=== PATIENT | male | born 1965 | race Caucasian/White ===

== ENCOUNTER 2020-11-30 06:11 | Day surgery (SDC) | payer MEDICAID ==
[~2020-11-30] VITALS: Ht 167.6 cm; Wt 75.0 kg
[2020-11-30] MEDS ORDERED: BENZOCAINE 20% 50 MCG/SPRAY 57 GM TP ONE (06:12)
[2020-11-30] MEDS ORDERED: LIDOCAINE 4% 50 ML SOLUTION TP ONE (06:12)
[2020-11-30] MEDS ORDERED: ALBUTEROL SULFATE 2.5 MG/0.5 ML NEB SOLUTION NEB ONE (06:12)
[2020-11-30] MEDS ORDERED: LIDOCAINE 2% 30 ML JELLY TP ONE (06:12)
[2020-11-30 07:03] LABS: COVID AG,FIA SOURCE NASOPHARYNGEAL
[2020-11-30] MEDS ORDERED: FentaNYL CITRATE PF 100 MCG/2 ML VIAL ONE (07:47)
[2020-11-30] MEDS ORDERED: MIDAZOLAM HCL 2 MG/2 ML VIAL ONE (07:47)
[2020-11-30] MEDS ORDERED: SODIUM CHLORIDE 0.9% 1,000 ML IV ONE (08:00)
[2020-11-30] MEDS ORDERED: MethylPREDNISolone SOD SUCC 125 MG/2 ML VIAL IVP ONE (08:45)
[2020-11-30] MEDS ORDERED: MethylPREDNISolone SOD SUCC 125 MG/2 ML VIAL ONE (09:18)
[2020-11-30] MEDS ORDERED: OXYGEN THERAPY IH SCH (20:00)
== END 2020-11-30 10:20 | disposition home or self-care (01) ==
LOC: SURGERY 06:11
PROVIDERS: ATTEND Internal Medicine Critical Care Medicine
DX: J38.4 Edema of larynx (principal); B37.0 Candidal stomatitis; I10 Essential (primary) hypertension; Z79.899 Other long term (current) drug therapy
CPT/HCPCS: 31623; 31624; 71045; 87015; 87070; 87101; 87205; 87206; 87220; 87426; 88108; 88184; 88185; 88312; C9803; J2250; J2930; J3010; J7030; J7613; Z7610

== ENCOUNTER 2023-09-21 06:52 | Day surgery (SDC) | payer OTHER ==
[~2023-09-21] VITALS: Ht 167.6 cm; Wt 81.8 kg
[2023-09-21] MEDS ORDERED: SODIUM CHLORIDE 0.9% 1,000 ML ONE (08:05)
[2023-09-21] MEDS ORDERED: MIDAZOLAM HCL 2 MG/2 ML VIAL ONE (08:27)
[2023-09-21] MEDS ORDERED: FentaNYL CITRATE PF 100 MCG/2 ML VIAL ONE (08:27)
[2023-09-21] MEDS: SODIUM CHLORIDE 0.9% 1,000 ML IV ONE (08:52)
[2023-09-21 09:48] VITALS: PULSE 78; RESP 19; O2SAT 100
[2023-09-21] MEDS ORDERED: MethylPREDNISolone SOD SUCC 125 MG/2 ML VIAL ONE ×2 (10:54→10:58)
[2023-09-21] MEDS: MethylPREDNISolone SOD SUCC 125 MG/2 ML VIAL IVP ONE (10:56)
[2023-09-21] MEDS ORDERED: BENZOCAINE 20% 50 MCG/SPRAY 57 GM ONE (12:00)
[2023-09-21] MEDS ORDERED: LIDOCAINE 4% 50 ML SOLUTION ONE (12:00)
[2023-09-21] MEDS ORDERED: LIDOCAINE 2% 11 ML JELLY ONE (12:00)
[2023-09-21] MEDS ORDERED: ALBUTEROL SULFATE 2.5 MG/0.5 ML NEB SOLUTION NEB ONE (12:00)
== END 2023-09-21 11:50 | disposition home or self-care (01) ==
LOC: SURGERY 06:52
PROVIDERS: ATTEND Internal Medicine Critical Care Medicine
DX: J38.4 Edema of larynx (principal); B37.0 Candidal stomatitis; Z79.899 Other long term (current) drug therapy
CPT/HCPCS: 31623; 87206; 87101; 87220; 87070; 88108; 31624; 94640; 71045; 87015; J3010; J2250; J2930; Q9967; J7030; J7613; Z7610

== ENCOUNTER 2024-04-11 06:42 | Day surgery (SDC) | payer OTHER ==
[~2024-04-11 06:42] MED LIST: SODIUM CHLORIDE 0.9% 1,000 ML IV ONE
[2024-04-11] MEDS ORDERED: FAMO20 PO (08:02)
[2024-04-11] MEDS ORDERED: MONT-35 PO (08:02)
[2024-04-11] MEDS ORDERED: BACL10TA PO (08:02)
[2024-04-11] MEDS ORDERED: GABA-1181 PO (08:02)
[2024-04-11] MEDS ORDERED: TIOT4MIS2 PUFF (08:02)
[2024-04-11] MEDS ORDERED: CETI-450 PO (08:02)
[2024-04-11] MEDS ORDERED: CEFU250T87 PO (08:02)
[2024-04-11] MEDS ORDERED: TAMS0.4C94 PO (08:02)
[2024-04-11] MEDS ORDERED: FLUT16SP NASAL (08:07)
[2024-04-11] MEDS ORDERED: SODIUM CHLORIDE 0.9% 1,000 ML ONE (08:24)
== END 2024-04-11 11:25 | disposition home or self-care (01) ==
LOC: SURGERY 06:42
PROVIDERS: ATTEND Internal Medicine Critical Care Medicine
DX: R05.3 Chronic cough (principal); R04.2 Hemoptysis; J98.09 Other diseases of bronchus, not elsewhere classified; J98.8 Other specified respiratory disorders; J84.10 Pulmonary fibrosis, unspecified; R00.1 Bradycardia, unspecified; Z53.8 Procedure and treatment not carried out for other reasons
CPT/HCPCS: 93005; J7030